=== PATIENT | female | born 1970 | race Two or more races ===

== ENCOUNTER → 2024-11-16 08:23 | Outpatient (CLI) | payer OTHER | END | disposition home or self-care (01) | LOC: SONOGRAMA 08:23 | PROVIDERS: ATTEND Internal Medicine Gastroenterology | DX: R10.11 Right upper quadrant pain (principal) ==

== ENCOUNTER 2024-12-05 07:55 | Outpatient (CLI) | payer OTHER | END 2024-12-05 07:57 | disposition home or self-care (01) | LOC: NUCLEAR 07:55 | PROVIDERS: ATTEND Internal Medicine Gastroenterology | DX: R10.11 Right upper quadrant pain (principal) ==

== ENCOUNTER 2025-01-09 07:05 | Outpatient (CLI) | payer OTHER | END 2025-01-09 07:06 | disposition home or self-care (01) | LOC: SONOGRAMA 07:05 | PROVIDERS: ATTEND Specialist | DX: R22.41 Localized swelling, mass and lump, right lower limb (principal) ==

== ENCOUNTER 2025-01-15 07:39 | Outpatient (CLI) | payer OTHER ==
[~2025-01-15 07:39] MED LIST: HORIZANT300 MG PO; JENTADUETO 2.51 EAC2 PO; LIPITOR20 MG PO; SYNTHROID150 MCG PO; ZESTRIL10 M1 PO
[2025-01-17] MEDS ORDERED: TRAMADOL HCL50 MG PO (11:50)
== END 2025-01-15 07:40 | disposition home or self-care (01) ==
LOC: NUCLEAR 07:39
DX: R22.41 Localized swelling, mass and lump, right lower limb (principal); I86.8 Varicose veins of other specified sites

== ENCOUNTER 2025-01-17 08:20 | Day surgery (SDC) | payer OTHER ==
[2025-01-14 11:01] VITALS: BP 126/69
[2025-01-14 12:11] LABS: BASO % 0.3 % (0.1-1.2); EOS # 0.07 (0.04-0.54); EOS % 1.1 % (0.7-7.0); LYMPH # 2.44 (1.18-3.74); LYMPH % 36.6 % (19.3-53.1); MEAN PLATELET VOLUME 10.20 fl (9.4-12.4); MONO # 0.56 (0.24-0.82); MONO % 8.4 % (4.7-12.5); NEUT # 3.56 (1.56-6.13); NEUT % 53.4 % (34.0-71.1); RED CELL DISTRIBUTION WIDTH 14.6 % (11.6-14.4)
[2025-01-14 12:29] LABS: URINE APPEARANCE Clear; URINE BILIRRUBIN Negative (NEGATIVE); URINE BLOOD Negative; URINE COLOR Yellow; URINE GLUCOSE Negative (NEGATIVE); URINE KETONE Negative (NEGATIVE); URINE LEUKOCYTE Negative; URINE NITRATE Negative; URINE PROTEIN Trace (NEGATIVE); URINE UROBILINOGEN 0.2 E.U./dl
[2025-01-14 12:33] LABS: URINE BACTERIA 91.1 uL (0.0-1933); URINE EPITHELIAL CELLS 25.3 uL (0.0-38.8); URINE RBC 9.8 uL (0.0-20.8); URINE WBC 3.8 uL (0.0-23.2)
[2025-01-14 12:41] LABS: URINE CAST 1.31 uL (0.0-1.40)
[2025-01-14 12:43] LABS: INR 0.97
[2025-01-14 13:22] LABS: ALT/SGPT 46.0 U/L (12-78); AST/SGOT 23.0 U/L (15-37); BILIRUBIN TOTAL 0.68 mg/dL (0.3-1.2); BUN CREA RATIO 24.0 (7.0-25.0); CREATININE SERUM 0.68 mg/dL (0.55-1.02); GFR 89.5; GLOBULINA 3.8 G/DL (2.4-3.5); GLUCOSE FASTING 127.0 mg/dL (65-100); OSMOLALITY SERUM 284.0 MOSM/KG (275-295)
[~2025-01-17] VITALS: Ht 157.5 cm; Wt 81.6 kg
[2025-01-17] MEDS ORDERED: TYLENOL ARTHRI650 MG PO (11:50)
[2025-01-17] MEDS ORDERED: MIRALAX17 GM PO (11:50)
[2025-01-17] MEDS ORDERED: TRAMADOL HCL50 MG PO ×2 (11:50→17:45)
[2025-01-17] MEDS ORDERED: BUPIVACAINE HCL/MPF 0.5% 30ML VIAL ONE (12:37)
[2025-01-17] MEDS ORDERED: CEFAZOLIN SODIUM 1,000 MG VIAL IV ONE (13:15)
[2025-01-17] MEDS ORDERED: MORPHINE SULFATE 4 MG/ML VIAL IV ONE ×2 (16:10→17:10)
== END 2025-01-17 19:20 | disposition home or self-care (01) ==
LOC: CIR.AMB 08:20
PROVIDERS: ATTEND Surgery
DX: K80.10 Calculus of gallbladder with chronic cholecystitis without obstruction (principal)